=== PATIENT | female | born 1990 | race Caucasian/White ===

== ENCOUNTER 2018-10-17 11:13 | Outpatient (CLI) | payer MEDICAID ==
[~2018-10-17] VITALS: Ht 154.9 cm; Wt 96.0 kg
[2018-10-17 11:34] VITALS: Ht 154.9 cm; Wt 96.0 kg
[2018-10-17 11:35] VITALS: BP 114/63; PULSE 93; RESP 18
[2018-10-17] MEDS ORDERED: PREN1TAB13 PO (11:44)
--- NOTE | 2018-10-17 12:28 | TRIAGE ---
OB Triage Datetime Report Generated by CPN: 10/17/2018 12:28 Datetime: 10/17/2018 11:29 Time of Arrival: 10/17/2018 11:00 EGA: 24.5 Arrived By: Ambulatory Arrived From: Home Chief Complaint: pain in mouth after dental work yesterday Movement: Present Contractions: Denies/Absent Rupture of Membranes: Denies Vaginal Bleeding: None Vaginal Discharge: Denies Recent Sexual Intercouse: Denies Abdominal Trauma: Not Applicable Patient Complaints: Other Provider Notified: radha Initial Plan: efm,call dr garcia Datetime: 10/17/2018 11:24 Maternal Assessment Level of Consciousness: Fully Conscious DTR's/Clonus: DTRs 2+ Headache: Denies Blurred Vision: No Nausea/Vomiting: Denies RUQ Epigastric Pain: Denies Facial Edema: None Labor Evaluation Frequency: none Pattern: Normal: <= 5 Contractions in 10 Minutes Resting Tone [place]: Relaxed Heart Rate FHR Baseline Rate: 140 Monitor Mode: External US FHR Baseline Changes: No Baseline Change Variability: Moderate 6-25 bpm Accelerations: 10X10 Decelerations: None Category: Category I Pain Assessment Pain Scale: 0 Pain Presence: None/Denies Pain Goal: 0 Vaginal Exam Membrane Status: Intact Datetime: 10/17/2018 11:18 Maternal Assessment Level of Consciousness: Fully Conscious DTR's/Clonus: DTRs 2+; No Clonus Headache: Denies Blurred Vision: No Respiratory Effort: Unlabored; Regular Rhythm; Equal Expansion Breath Sounds, Left: Clear and Equal Breath Sounds, Right: Clear and Equal Nausea/Vomiting: Denies RUQ Epigastric Pain: Denies Facial Edema: None Temperature Route: Axillary Fall Risk Assessment History of Falling: (0) No Secondary Diagnosis: (0) No Ambulatory Aid: (0) Bedrest/Nurse Assist IV Therapy: (0) No Gait: (0) Normal/Bedrest/Immobile Mental Status: (0) Oriented to Own Ability Fall Score: 0 Fall Risk Score Definition: No Risk: No action required
--- NOTE | 2018-10-18 18:37 | PN ---
Triage Information Date/Time Reason for visit: pain in mouth after dental work/ toothache Weeks of Gestation at 24 wks and 5 days of gestation with DELIA 02/01/2019 here for toothache/ pain in mouth after dental work Patient reports positive movement, denies contractions, denies vaginal bleeding or leaking fluid /Para Diabetes: none Hypertention: none Objective Vital Signs Date Temp Pulse Resp B/P (MAP) Pulse Ox O2 O2 Flow FiO2 Time Delivery Rate 10/17/18 98.6 93 18 114/63 Room Air 11:35 (80) Heart Rate: 140's Heart Rate Comments heart rate tracing appropriate for gestational age Contractions: None Disposition: Discharge Assessment/Plan Patient is cleared obstetrically and instructed to follow up with the dentist She was counseled to continue with the amoxicillin prescribed by the dentist and take Tylenol to help with the pain ADEEL MARQUEZ MD Oct 18, 2018 18:37
== END 2018-10-17 12:10 | disposition home or self-care (01) ==
LOC: OBT 11:13 → L-D 11:13 → OBT 12:10
PROVIDERS: ATTEND Obstetrics & Gynecology
DX: O26.892 Other specified pregnancy related conditions, second trimester (principal); K08.89 Other specified disorders of teeth and supporting structures; Z3A.24 24 weeks gestation of pregnancy
CPT/HCPCS: G0463

== ENCOUNTER 2018-12-29 14:04 | Outpatient (CLI) | payer MEDICAID ==
[~2018-12-29] VITALS: Ht 154.9 cm; Wt 101.3 kg
[~2018-12-29 14:04] MED LIST: PREN1TAB13 PO
[2018-12-29 14:17] VITALS: Ht 154.9 cm; Wt 101.3 kg
[2018-12-29 14:18] VITALS: BP 129/60; PULSE 97; RESP 18
--- NOTE | 2018-12-29 16:56 | PN ---
Triage Information Date/Time December 29, 2018 Reason for visit: SROM (28-year-old female 2 para 1 at 35 weeks and 2 days gestation sent in from clinic to rule out spontaneous rupture of membrane. She claims she has been leaking for a week) Weeks of Gestation 35 weeks and 2 days /Para 2 para 1 Diabetes: none Hypertention: none Objective Vital Signs Date Temp Pulse Resp B/P (MAP) Pulse Ox O2 O2 Flow FiO2 Time Delivery Rate 12/29/18 98.9 97 18 129/60 Room Air 14:18 (83) Heart Rate: 140's Heart Rate Comments Reactive Contractions: None Exam Deferred ROM plus test was negative Results/Medications Results 24 hrs Laboratory Tests Test 12/29/18 14:25 Membranes Rupture NEGATIVE Imaging Results Normal biophysical profile. Disposition: Discharge Assessment/Plan Normal biophysical and negative ROM plus tests 35 weeks and 2 days gestation Will follow patient as outpatient NIKOLE KIRKPATRICK MD Dec 29, 2018 16:56
--- NOTE | 2018-12-29 17:12 | TRIAGE ---
OB Triage Datetime Report Generated by CPN: 12/29/2018 17:12 Datetime: 12/29/2018 16:00 Stage of : OB Triage Maternal Assessment Level of Consciousness: Keenly Alert, Responsive Labor Evaluation Frequency: 0 Monitor Mode: External Resting Tone [place]: Relaxed Heart Rate FHR Baseline Rate: 135 Monitor Mode: External US Variability: Moderate 6-25 bpm Accelerations: 15X15 Decelerations: None Category: Category I Pain Assessment Pain Scale: 0 Pain Goal: 3 Vaginal Exam Membrane Status: Intact Vaginal Bleeding: None Datetime: 12/29/2018 15:42 Monitor Mode: External US Datetime: 12/29/2018 15:00 Stage of : OB Triage Maternal Assessment Level of Consciousness: Keenly Alert, Responsive Labor Evaluation Frequency: 0 Monitor Mode: External Resting Tone [place]: Relaxed Heart Rate FHR Baseline Rate: 135 Monitor Mode: External US Variability: Moderate 6-25 bpm Accelerations: 15X15 Decelerations: None Category: Category I Pain Assessment Pain Scale: 0 Pain Goal: 3 Vaginal Exam Membrane Status: Intact Vaginal Bleeding: None Datetime: 12/29/2018 14:25 Pool: Negative Nitrazine: Negative Datetime: 12/29/2018 14:15 Assessment Type: Triage Maternal Assessment Level of Consciousness: Keenly Alert, Responsive DTR's/Clonus: DTRs 2+; No Clonus Headache: Denies Blurred Vision: No Respiratory Effort: Unlabored; Regular Rhythm; Equal Expansion Breath Sounds, Left: Clear and Equal Breath Sounds, Right: Clear and Equal Nausea/Vomiting: Denies RUQ Epigastric Pain: Denies Lower Extremities Edema: None Degree: None Upper Extremities Edema: None Degree: None Facial Edema: None Fall Risk Assessment History of Falling: (0) No Secondary Diagnosis: (0) No Ambulatory Aid: (0) Bedrest/Nurse Assist IV Therapy: (0) No Gait: (0) Normal/Bedrest/Immobile Mental Status: (0) Oriented to Own Ability Fall Score: 0 Fall Risk Score Definition: No Risk: No action required Datetime: 12/29/2018 14:12 Time of Arrival: 12/29/2018 13:59 EGA: 35.2 Arrived By: Ambulatory Arrived From: Office Chief Complaint: PT. SENT FROM CLINIC TO [facility]. FOR POSSIBLE SROM Movement: Present Contractions: Denies/Absent Rupture of Membranes: Unsure Vaginal Bleeding: None Vaginal Discharge: Present Recent Sexual Intercouse: Denies Abdominal Trauma: Not Applicable Patient Complaints: None Time Provider Notified: 12/29/2018 15:27 Provider Notified: ASHLEY Initial Plan: NST/BPP/ROM PLUS Datetime: 12/29/2018 14:11 Monitor Mode: External Monitor Mode: External US Datetime: 10/17/2018 11:29 EGA: 24.6 Datetime: 10/17/2018 11:18 Fall Score: 0 Fall Risk Score Definition: No Risk: No action required
== END 2018-12-29 17:06 | disposition home or self-care (01) ==
LOC: L-D 14:04 → OBT 14:04
PROVIDERS: ATTEND Obstetrics & Gynecology
DX: O42.913 Preterm premature rupture of membranes, unspecified as to length of time between rupture and onset of labor, third trimester (principal); Z3A.35 35 weeks gestation of pregnancy
CPT/HCPCS: 76818; 84112; Z7500; G0463

== ENCOUNTER 2019-01-17 10:53 | Inpatient (IN) | payer MEDICAID ==
[~2019-01-17] VITALS: Ht 162.6 cm; Wt 101.1 kg
[2019-01-17 11:02] VITALS: BMI 38.2
--- NOTE | 2019-01-17 11:28 | TRIAGE ---
OB Triage Datetime Report Generated by CPN: 01/17/2019 11:28 Datetime: 01/17/2019 11:06 Vaginal Exam Dilatation (cms): 2.0 Effacement (%): 80 Station: -3 Exam By: dov montano Vaginal Bleeding: None Cervix, Consistency: Soft Cervix, Position: Midposition Presentation 'A': Cephalic Datetime: 01/17/2019 11:01 Assessment Type: Triage Maternal Assessment Level of Consciousness: Keenly Alert, Responsive DTR's/Clonus: DTRs 2+; No Clonus Headache: Denies Blurred Vision: No Respiratory Effort: Unlabored; Regular Rhythm; Equal Expansion Breath Sounds, Left: Clear and Equal Breath Sounds, Right: Clear and Equal Nausea/Vomiting: Denies RUQ Epigastric Pain: Denies Lower Extremities Edema: None Degree: None Upper Extremities Edema: None Degree: None Facial Edema: None Fall Risk Assessment History of Falling: (0) No Secondary Diagnosis: (0) No Ambulatory Aid: (0) Bedrest/Nurse Assist IV Therapy: (0) No Gait: (0) Normal/Bedrest/Immobile Mental Status: (0) Oriented to Own Ability Fall Score: 0 Fall Risk Score Definition: No Risk: No action required Datetime: 01/17/2019 10:50 Time of Arrival: 01/17/2019 10:50 EGA: 38.0 Arrived By: Ambulatory Arrived From: Home Chief Complaint: PT CAME IN FROM HOME C/O UC'S Movement: Present Contractions: Irregular Time Contractions Began: 01/17/2019 01:00 Rupture of Membranes: Denies Vaginal Discharge: Denies Recent Sexual Intercouse: Denies Abdominal Trauma: Not Applicable Additional Patient Complaints: NONE Time Provider Notified: 01/17/2019 11:26 Provider Notified: ASHLEY Initial Plan: MONITOR AND VE Datetime: 12/29/2018 14:15 Fall Score: 0 Fall Risk Score Definition: No Risk: No action required Datetime: 12/29/2018 14:12 EGA: 35.2 Datetime: 10/17/2018 11:29 EGA: 24.6 Datetime: 10/17/2018 11:18 Fall Score: 0 Fall Risk Score Definition: No Risk: No action required
[2019-01-17] MEDS: LACTATED RINGER'S 1,000 ML IV SCH ×4 (11:44→23:26)
[2019-01-17] MEDS ORDERED: OXYTOCIN 30 UNITS/LR 500 ML IV PRN ×2 (12:00→21:30)
[2019-01-17] MEDS ORDERED: CARBOPROST 250 MCG INJ IM PRN ×2 (12:00→21:30)
[2019-01-17] MEDS ORDERED: MISOPROSTOL 200 MCG TAB PR PRN ×2 (12:00→21:30)
[2019-01-17] MEDS ORDERED: METHYLERGONOVINE 0.2 MG INJ IM PRN ×2 (12:00→21:30)
[2019-01-17 13:18] VITALS: Ht 162.6 cm; Wt 101.1 kg
[2019-01-17 13:21] VITALS: BP 121/60; PULSE 101; RESP 20
[2019-01-17] MEDS ORDERED: ONDANSETRON 4 MG INJ IV ONE ×2 (13:30→15:00)
[2019-01-17] MEDS ORDERED: CITRIC ACID/NA CITRATE 30 ML CUP PO ONE ×2 (13:30→15:00)
--- NOTE | 2019-01-17 14:35 | PREAC ---
Date/Time of Note Date/Time of Note DATE: 01/17/19 TIME: 14:34 Anesthesia Eval and Record Evaluation Time Pre-Procedure Interview DATE: 01/17/19 TIME: 14:34 Age 28 Sex female NPO: 8 hrs Preoperative diagnosis Repeat in Labor Planned procedure Past Medical History Past Medical History: Includes Heme: Anemia : : (2), Para: (1), Gestational age: (39) Surgery & Anesthesia Issues No known issue Meds Anticoagulation: No Beta Danya within 24 hr: No Reason Beta Danya not given: Pt. not on B-Danya Reported Medications Pnv95/Ferrous Fumarate/FA ( Vitamins Tablet) 1 Each Tablet, 1 EACH PO, TAB 10/17/18 Current Medications Lactated Ringer's 1,000 ml @ 125 mls/hr Q8H IV Last administered on 01/17/19at 11:44; Admin Dose 125 MLS/HR; Start 01/17/19 at 11:34 Cefazolin Sodium/ Dextrose 50 ml @ 100 mls/hr ONCE IVPB ; Start 01/17/19 at 12:00 Oxytocin/Lactated Ringer's 500 ml @ 0 mls/hr ONCE PRN IV .VAGINAL BLEEDING; Start 01/17/19 at 12:00 Methylergonovine Maleate (Methergine) 0.2 mg ONCE PRN IM .VAGINAL BLEEDING; Start 01/17/19 at 12:00 Carboprost Tromethamine (Hemabate) 250 mcg ONCE PRN IM .VAGINAL BLEEDING; Start 01/17/19 at 12:00 Misoprostol (Cytotec) 1,000 mcg ONCE PRN CA .VAGINAL BLEEDING; Start 01/17/19 at 12:00 Oxytocin/Lactated Ringer's 500 ml @ 125 mls/hr Q4H IV ; Start 01/17/19 at 14:00 Meds reviewed: Yes Allergies Coded Allergies: No Known Allergy (Unverified , 01/17/19) Allergies Reviewed: Yes Labs/Studies Labs Reviewed: Reviewed by anesthesiologist Result Diagram: 01/17/19 1145 Laboratory Tests 01/17/19 11:45 Blood Bank Test 01/17/19 11:45 Antibody Screen NEGATIVE Blood Type B POSITIVE Rh Immune Globulin Candidate NO test: Positive Studies: ECG (n/a), CXR (n/a) Pre-procedure Exam Last vitals Vital Signs Date Temp Pulse Resp B/P (MAP) Pulse Ox O2 O2 Flow FiO2 Time Delivery Rate 01/17/19 98.7 101 20 121/60 Room Air 13:21 (80) Airway: Adequate mouth opening, Adequate thyromental dist Mallampati: Mallampati II Teeth: Normal Lung: Normal Heart: Normal ASA Physical Status ASA physical status: 2 Emergency: None Planned Anesthetic Neuraxial: Spinal Planned Pain Management Sub-arachniod narcotics, Parenteral pain med Pre-operative Attestations Prior to commencing anesthesia and surgery, the patient was re-evaluated, there was verification of: *The patient's identity *The results of appropriate recent lab work and preoperative vital signs *The above evaluation not changing prior to induction *Anesthetic plan, risk benefits, alternative and complications discussed with patient/family; questions answered; patient/family understands, accepts and wishes to proceed. MEHRAN BRIDGES MD Jan 17, 2019 14:35
[2019-01-17] MEDS ORDERED: morphine SULFATE/PF (10 MG/10 ML) INJ ONE (16:42)
[2019-01-17] MEDS ORDERED: OXYTOCIN 10 UNIT INJ ONE (16:42)
[2019-01-17] MEDS ORDERED: PHENYLephrine (100 MCG/ML) 10ML SYG ONE ×2 (16:42→17:28)
[2019-01-17] MEDS ORDERED: DEXAMETHASONE 4 MG/ML 1 ML INJ ONE (16:59)
[2019-01-17] MEDS ORDERED: METOCLOPRAMIDE 10 MG INJ ONE (16:59)
[2019-01-17] MEDS ORDERED: KETOROLAC 30 MG INJ ONE (16:59)
[2019-01-17] MEDS ORDERED: EPHEDrine 25 MG/5 ML SYG ONE (17:28)
[2019-01-17] MEDS ORDERED: KETOROLAC 30 MG INJ IV STA (17:43)
[2019-01-17] MEDS ORDERED: ACETAMINOPHEN 500 MG TAB PO STA (17:43)
--- NOTE | 2019-01-17 17:49 | PAC ---
Date/Time of Note Date/Time of Note DATE: 01/17/19 TIME: 17:48 Post-Anesthesia Notes Post-Anesthesia Note Last documented vital signs Vital Signs Date Temp Pulse Resp B/P (MAP) Pulse Ox O2 O2 Flow FiO2 Time Delivery Rate 01/17/19 98.7 101 20 121/60 98 Room Air 17:51 (80) Activity: WNL Respiratory function: WNL Cardiovascular function: WNL Mental status: Baseline Pain reasonably controlled: Yes Hydration appropriate: Yes Nausea/Vomiting absent: Yes MEHRAN BRIDGES MD Jan 17, 2019 17:49
--- NOTE | 2019-01-17 17:51 | HP ---
Date/Time of Note Date/Time of Note DATE: 01/17/19 TIME: 17:49 OB - History Hx of Present Free Text/Dictation 28-year-old female complaining of onset of uterine contraction and vaginal spotting since a.m. of admission Denies ruptured membrane Chief Complaint: Labor contractions and vaginal spotting at 38 weeks Last Menstrual Period: May 04, 2018 Estimated Due Date: Jan 31, 2019 : 3 Para: 1 Spontaneous : 1 Care: Good Care Ultrasounds: Normal mid trimester US Obstetrical Complications: None Medical Complications: None, Other (Previous section x1) Past Family/Social History * Past Medical, Surgical, Family and Obstetric Histories reviewed from chart. Blood Type: O+ Rubella: immune RPR/VDRL: Negative GBS Status: Unknown HBsAG: Negative OB Admission Exam Vital Signs Vital Signs Vital Signs Date Temp Pulse Resp B/P (MAP) Pulse Ox O2 O2 Flow FiO2 Time Delivery Rate 01/17/19 98.7 101 20 121/60 Room Air 13:21 (80) Physical Exam HEENT: WNL Heart: Rhythm Normal Lungs: Clear, Equal Abdomen: WNL Extremities: Normal Reflexes: Normal Cervical Dilatation: 2cm Effacement: 75% Station: -3 Membranes: Intact Heart Rate: 140's Accelerations: Accelerations Present Decelerations: No Decelerations Varibility: Marked Contractions on Admission: 6-10 Minutes Apart Date/Time Contractions Began: 2018 at 6 AM Frequency of Contractions: Every 5 to 10 minutes Intensity: Mild Last 72 hours Lab Results CBC & BMP 01/17/19 11:45 OB Assessment/Plan Other Assessment: Previous x1 Term gestation Labor contractions Other plan: Repeat section NIKOLE KIRKPATRICK MD Jan 17, 2019 17:51
--- NOTE | 2019-01-17 17:53 | OPR ---
Operative Report Planned Procedure Procedure date Jan 17, 2019 Procedure(s) Repeat section Performed by see signature line Slot Floor Attendant: ADELA GUTIERREZ M.D. Anesthesiologist: MEHRAN BRIDGES MD Pre-procedure diagnosis Term gestation Previous Labor contractions [id number] Anesthesia Type: Vvfgx7j spinal Post-Procedure Post-procedure diagnosis Status post repeat Findings Live Baby in JANKI position Clear amniotic fluid Normal-appearing right and left fallopian tubes and ovaries Estimated Blood Loss: 500 - 600 mls Specimen(s) none Grafts/Implant(s) none Complication(s) none Pt Condition post procedure: stable Disposition: PACU Procedure Description Under satisfactory anaesthesia a Pfannenstiel incision was made two fingerbreadth above and parallel to the symphysis of pubis around the previous scar and previous scar was removed Incision was extended laterally to the border of the Recti muscles on either sides. Incision was carried down with sharp and blunt dissection until fascia was reached. Anterior Recti muscle fascia was incised in mid portion and incision extended laterally to the border of skin incision. Fascia was mobilized from muscle superiorly and Recti muscles were from midline using sharp and blunt dissection. Peritoneum was visualized; Avoiding bowel and bladder it was incised . Incision was extended superiorly and inferiorly. Bladder blade was placed. Posterior peritoneum covering the lower segment of the uterus and lower segment of the uterus were incised.Low transverse uterine incision was made on lower segment of the uterus. Incision extended laterally to the border of Round Lig. on either sides and baby was delivered from OT. position . Amniotic fluid appeared clear. Cord blood was obtained and cord had 3 vessels . Placenta was delivered spontaneously and appeared intact and complete. Intrauterine cavity was rubbed with a laparotomy sponge. Uterine incision was closed in 2 layers using running stitches of No1 Monocryl. Hemostasis appeared secure. Ovaries and Fallopian tubes were within normal limits. Announcing needle, lap sponge and instrument count to be correct abdomen was closed in layers as follows: Peritoneum and Recti muscles with running stitches of 2-0 Vicryl. Fascia with running stitch of No 1 PDS. Subcutaneous tissue with running stitches of 2-0 Monocryl and skin was closed using marla. Patient tolerated the procedure well and was transferred to [facility] in good condition. NIKOLE KIRKPATRICK MD Jan 17, 2019 17:53
[2019-01-17] MEDS ORDERED: morphine 2 MG INJ IV PRN ×2 (18:00)
[2019-01-17] MEDS ORDERED: AZITHROMYCIN 500MG/NS (PMX) 250 ML IVPB ONE (18:00)
[2019-01-17] MEDS ORDERED: HYDROmorphONE 0.5 MG/0.5 ML SYG IV PRN ×2 (18:00)
[2019-01-17] MEDS ORDERED: NALOXONE (0.4 MG/ML) INJ IV PRN (18:00)
[2019-01-17] MEDS ORDERED: ACETAMINOPHEN 500 MG TAB PO PRN (18:00)
[2019-01-17] MEDS ORDERED: DIPHENHYDRAMINE 50 MG INJ IV PRN (18:00)
[2019-01-17] MEDS ORDERED: ONDANSETRON 4 MG INJ IV PRN (18:00)
[2019-01-17] MEDS ORDERED: NALBUPHINE HCL (10 MG/1 ML) INJ IV PRN (18:00)
[2019-01-17] MEDS: CEFAZOLIN 2 GM/50 ML (PMX) 50 ML IVPB SCH ×3 (18:36→23:25)
[2019-01-17] MEDS: OXYTOCIN 30 UNITS/LR 500 ML IV SCH ×2 (18:41→19:29)
[2019-01-17 20:35] VITALS: BP 114/64; PULSE 97; RESP 17
[2019-01-17] MEDS ORDERED: OXYCODONE/ACETAMINOPHEN (5/325) TAB PO PRN (21:30)
[2019-01-17] MEDS ORDERED: NA PHOSPHATE/BIPHOS 133 ML ENEMA PR PRN (21:30)
[2019-01-17] MEDS ORDERED: HYDROCODONE/APAP (5/325) TAB PO PRN (21:30)
[2019-01-17 22:00] VITALS: BP 119/72; PULSE 92; RESP 18
[2019-01-17] MEDS: IBUPROFEN 800 MG TAB PO SCH (22:00)
[2019-01-17] MEDS: SENNA/DOCUSATE NA (8.6MG/50MG) TAB PO SCH (22:23)
[2019-01-17] MEDS: LANOLIN HPA 1 PKT TOP PRN (22:24)
[2019-01-17] MEDS: CLINDAMYCIN 300 MG CAP PO SCH (23:25)
[2019-01-18 00:18] VITALS: BP 124/59; PULSE 93; RESP 19
[2019-01-18 03:34] VITALS: BP 93/50; PULSE 88; RESP 17
[2019-01-18] MEDS: KETOROLAC 30 MG INJ IV PRN ×2 (04:36→16:10)
[2019-01-18] MEDS: CEFAZOLIN 2 GM/50 ML (PMX) 50 ML IVPB SCH ×2 (05:47→13:46)
[2019-01-18] MEDS: CLINDAMYCIN 300 MG CAP PO SCH ×4 (05:47→23:42)
[2019-01-18] MEDS: IBUPROFEN 800 MG TAB PO SCH ×3 (06:00→21:48)
[2019-01-18 07:45] VITALS: BP 102/53; PULSE 82; RESP 18
[2019-01-18] MEDS: SENNA/DOCUSATE NA (8.6MG/50MG) TAB PO SCH ×3 (09:25→20:38)
[2019-01-18] MEDS ORDERED: BISACODYL 10 MG SUPP PR ONE (10:00)
[2019-01-18 11:51] VITALS: BP 102/55; PULSE 80; RESP 18
[2019-01-18 16:10] VITALS: BP 98/50; PULSE 84; RESP 18
--- NOTE | 2019-01-18 16:57 | PN ---
Date/Time of Note Date/Time of Note DATE: 01/18/19 TIME: 16:53 Assessment/Plan VTE Prophylaxis VTE Prophylaxis Intervention: ambulation Lines/Catheters IV Catheter Type (from Nrsg): Peripheral IV Assessment/Plan Assessment/Plan Postop day #1 status post Advance diet and continue to ambulate patient and provide supportive care Subjective 24 Hr Interval Summary No bowel movement but passing flatus Constitutional: no complaints, improved, ambulates, BM, flatus, urine output Pain Control: well controlled Exam/Review of Systems Vital Signs Vitals Vital Signs Date Temp Pulse Resp B/P (MAP) Pulse Ox O2 O2 Flow FiO2 Time Delivery Rate 01/18/19 98.4 84 18 98/50 (66) 97 Room Air 16:10 Intake and Output 01/17/19 01/17/19 01/18/19 1515:00 23:00 07:00 IntakeIntake Total 2100 ml 500 ml OutputOutput Total 1342 ml 600 ml BalanceBalance 758 ml -100 ml Exam Free Text/Dictation Abdomen is soft, bowel sounds are present, abdomen is not distended Incision is covered Constitutional: alert, oriented, well developed Psych: no complaints, nl mood/affect Head: normocephalic, atraumatic Eyes: nl conjunctiva, EOMI, nl lids, nl sclera ENMT: nl external ears & nose, nl lips & teeth, nl nasal mucosa & septum, mucosa pink and moist Neck: supple, non-tender Respiratory: clear to auscultation, normal air movement Cardiovascular: regular rate and rhythm, nl pulses Gastrointestinal: soft, nl liver, spleen, non-tender Musculoskeletal: nl extremities to inspection, nl gait and stance Extremities: normal pulses Neurological: CARDIAC EXERCISE SPECIALIST II-XII intact, nl mental status, nl speech, nl strength Skin: nl turgor, rash or lesions Lymph: nl lymph nodes Results Result Diagram: 01/18/19 0730 NIKOLE KIRKPATRICK MD Jan 18, 2019 16:57
[2019-01-18 19:45] VITALS: BP 104/53; PULSE 84; RESP 18
[2019-01-18] MEDS: HYDROCODONE/APAP (5/325) TAB PO PRN (20:37)
[2019-01-19 03:28] VITALS: BP 112/54; PULSE 79; RESP 18
[2019-01-19] MEDS: IBUPROFEN 800 MG TAB PO SCH ×3 (06:15→22:20)
[2019-01-19] MEDS: CLINDAMYCIN 300 MG CAP PO SCH ×3 (06:15→19:11)
[2019-01-19 08:30] VITALS: BP 110/59; RESP 18
[2019-01-19] MEDS: SENNA/DOCUSATE NA (8.6MG/50MG) TAB PO SCH ×2 (09:00→21:00)
--- NOTE | 2019-01-19 12:00 | DS ---
Date/Time of Note Date/Time of Note DATE: 01/19/19 TIME: 12:00 Obstetrical Discharge Record Final Diagnosis Final Diagnosis: Term delivered Other Final Diagnosis Status post repeat Section Section: Repeat Condition on Discharge Physical Assessment Voiding: Yes Bowel Movement: Yes Breast: Soft, non-tender, Filling Fundus: Firm Abdomen and Incision: Abdomen is soft and nontender and not distended with present bowel sounds Incision is healing well without induration and erythema Calf Tenderness: No Patient Condition: Good NIKOLE KIRKPATRICK MD Jan 19, 2019 12:00
--- NOTE | 2019-01-19 12:02 | PD.PPDC ---
CONTACT WORKER LITHOGRAPHY Discharge Instruction Provider Information Physician Information 28-year-old female had repeat Diagnosis [id number] Final Diagnosis: Fgjqa3s Status post Condition [id number] Patient Condition: Ebkgp8l Good Diet Nxgvj4Mw Diet: Nnbmi6j Resume Regular Diet Activity/Restrictions Afzvp5Hr Activity: Wwiqq1i May Shower Fbxmk8Fl Restrictions: Lfmow7u No Exercising No Lifting Nothing in the Vagina Aebpn8Ac Return to Work or School: Qbakr6t Mar 22, 2019 Wound/Drain Care Instructions [id number] Wound/Drain Care Instructions: Izdbp9t Keep clean and dry Follow-up Follow-up with Physician: 5, Day/Days (In clinic for staple removal) Return to clinic for Hkyto8Ym HOME CARE SCHEDULER Instructions: Hkkiy8e Fever greater than 101 Chills Aqztx9Lh OB Instructions: Hugrq3d Breast Tenderness Depression Comment: Pelvic rest and no hard activity for 2 months Jrwlo3El Surgical Instructions: Ylyuz4h Incisional Drainage Incisional Redness NIKOLE KIRKPATRICK MD Jan 19, 2019 12:02
[2019-01-19] MEDS ORDERED: IBUP800T48 PO (12:03)
[2019-01-19] MEDS ORDERED: Acetaminophen PO (12:09)
[2019-01-19] MEDS ORDERED: ACETAMINOPHEN 325 MG TAB PO PRN (12:30)
[2019-01-19] MEDS: HYDROCODONE/APAP (5/325) TAB PO PRN (12:31)
[2019-01-19 17:19] VITALS: BP 107/51; PULSE 88; RESP 18
[2019-01-20] MEDS: CLINDAMYCIN 300 MG CAP PO SCH ×3 (00:18→12:00)
[2019-01-20 04:00] VITALS: BP 116/56; PULSE 80; RESP 18
[2019-01-20] MEDS: IBUPROFEN 800 MG TAB PO SCH ×2 (05:53→13:45)
[2019-01-20] MEDS: LANOLIN HPA 1 PKT TOP PRN ×2 (05:53→10:01)
[2019-01-20 08:00] VITALS: BP 111/56; PULSE 76; RESP 18
[2019-01-20] MEDS ORDERED: DIPHTH/TET/ACEL PERTUSS (ADULT) 0.5 ML VIAL IM* ONE (09:00)
[2019-01-20] MEDS ORDERED: MEASLES,MUMPS,RUBELLA VACCINE INJ SC* ONE (09:00)
[2019-01-20] MEDS: SENNA/DOCUSATE NA (8.6MG/50MG) TAB PO SCH (10:01)
[2019-01-20] MEDS: HYDROCODONE/APAP (5/325) TAB PO PRN (12:00)
--- NOTE | 2019-01-21 16:17 | DELSUM ---
Delivery Summary A-C Datetime Report Generated by CPN: 01/21/2019 16:17 DELIVERY PERSONNEL Construction Services Technician: [place], May MATERNAL INFORMATION Delivery Anesthesia: Spinal Medications in Delivery: see anesthesia Delivery QBL (ml): 714 Placenta Cultured: No Maternal Complications: Other Other Maternal Complications: previous section LABOR SUMMARY EDC: 01/31/2019 00:00 No. Babies in Womb: 1 Attempted: No Labor Anesthesia: None LABOR INFORMATION Reason for Induction: Not Applicable Onset of Labor: 01/17/2019 01:00 Group B Beta Strep: Negative Antibiotics # of Doses: 1 Antibiotics Time of Last Dose: 01/17/2019 16:41 Steroids Given: None Reason Steroids Not Administered: Not Applicable MEMBRANES Membranes Rupture Method: Artificial Rupture of Membranes: 01/17/2019 17:11 Length of Rupture (hr): 0.02 Amniotic Fluid Color: Clear Amniotic Fluid Amount: Moderate Amniotic Fluid Odor: None STAGES OF LABOR Stage 3 hr: 0 Stage 3 min: 0 Total Time in Labor hr: 16 Total Time in Labor min: 12 CSECTION DELIVERY Primary Indication: Repeat Elective Other Primary Indication: IN LABOR Secondary Indication: N/A CSection Urgency: Non Elective CSection Incidence: Repeat Labor: Labor Elective: Nonelective CSection Incision: Lower Uterine Transverse BABY A INFORMATION Infant Delivery Date/Time: 01/17/2019 17:12 Method of Delivery: Born in Route : No : N/A Forceps: N/A Vacuum Extraction: N/A Shoulder Dystocia : N/A ASSISTED DELIVERY BABY A Position Vacuum/Forcep Apply: Right Occipital Anterior Vacuum Number of Pulls: 1 Vacuum Number of PopOffs: 0 SHOULDER DYSTOCIA BABY A Infant Delivery Date/Time: 01/17/2019 17:12 PRESENTATION/POSITION BABY A Presentation: Cephalic Cephalic Presentation: Vertex Vertex Position: Right Occipital Anterior Breech Presentation: N/A PLACENTA INFORMATION BABY A Placenta Delivery Time : 01/17/2019 17:12 Placenta Method of Delivery: Spontaneous Placenta Status: Delivered SCORES BABY A Heart Rate 1 min: >100 bpm Resp Effort 1 min: Good Cry Reflex Irritability 1 min: Cough/Sneeze/Pulls Away Muscle Tone 1 min: Active Motion Color 1 min: Blue/Pale Resuscitation Effort 1 min: Tactile Stimulation SCORE 1 MIN: 8 Heart Rate 5 min: >100 bpm Resp Effort 5 min: Good Cry Reflex Irritability 5 min: Cough/Sneeze/Pulls Away Muscle Tone 5 min: Active Motion Color 5 min: Body [place], Extremit Blue Resuscitation Effort 5 min: Tactile Stimulation SCORE 5 MIN: 9 INFANT INFORMATION BABY A Gestational Age at Delivery: 38.0 Gestational Status: Early Term- 37- 38.6 Weeks Outcome : Liveborn, with signs of life Infant Condition : Stable Infant Sex: Female IDENTIFICATION/MEDS BABY A ID Band Number: [id number] ID Band Location: Right Leg; Left Arm Sensor Applied: Yes Sensor Number: [id number] Sensor Location : Cord Clamp Vitamin K Given : Not Given Erythromycin Given: Not Given WEIGHT/LENGTH BABY A Birthweight (gm): 3020 Infant Weight (lb): 6 Weight (oz): 11 Infant Length (in): 19.25 Length (cm): 48.90 CORD INFORMATION BABY A No. Cord Vessels: 3 Nuchal Cord : N/A Cord Blood Taken: Yes Suction: Mouth; Nose ASSESSMENT BABY A Infant Complications: None Physical Findings at Delivery: Within Normal Limits Respirations: Appears Normal Unleavened Dough Mixer/ALS Called : No Infant Care By: NICU RT/RN Transferred To: Remains with Mother
== END 2019-01-20 16:01 | disposition home or self-care (01) | DRG 788 ==
LOC: L-D 10:53 → OBT 10:53 → L-D 11:26 → OBT 11:26 → UNDOADMIN 11:36 → L-D 11:36 → PP1 20:31
PROVIDERS: ADMIT Obstetrics & Gynecology; ATTEND Obstetrics & Gynecology
PROC: 10D00Z1 Extraction of Products of Conception, Low, Open Approach (ICD-10-PCS; principal; 2019-01-17 17:00)
DX: O34.211 Maternal care for low transverse scar from previous cesarean delivery (principal); Z3A.38 38 weeks gestation of pregnancy; Z37.0 Single live birth
CPT/HCPCS: 85025; 85610; 85730; 86592; 86850; 86900; 86901; 87340; 99464; G0463; J0456; J0690; J1100; J1885; J2274; J2370; J2405; J2590; J2765; J7120